=== PATIENT | female | born 1990 | race Caucasian/White ===

== ENCOUNTER 2017-10-31 19:49 | Emergency (ER) | payer OTHER, MEDICAID ==
[~2017-10-31] VITALS: Ht 157.5 cm; Wt 52.2 kg
[~2017-10-31 19:49] MED LIST: ACETAMINOPHEN-1 EAC1 PO; BACTRIM DS TAB1 EACH PO; BACTROBAN22 GM TP; HIBICLENS120 ML TP; PROTONIX 20 MG20 MG PO; SEROQUEL400 MG PO
[2017-10-31] MEDS ORDERED: NUVA RING (19:54)
[2017-10-31] MEDS ORDERED: ACETAMINOPHEN-1 EAC1 PO (20:35)
[2017-10-31] MEDS ORDERED: MEDROLDOSEPACK PO (20:35)
[2017-10-31] MEDS ORDERED: CLARITIN10 MG PO (20:35)
[2017-10-31] MEDS ORDERED: NASACORT10.8 ML NASAL (20:35)
[2017-10-31 20:44] VITALS: BP 117/78
== END 2017-10-31 20:44 | disposition home or self-care (01) ==
LOC: M.ERS 19:49
DX: J06.9 Acute upper respiratory infection, unspecified (principal); F17.210 Nicotine dependence, cigarettes, uncomplicated

== ENCOUNTER 2018-08-04 20:53 | Emergency (ER) | payer OTHER, MEDICAID ==
[~2018-08-04] VITALS: Ht 157.5 cm; Wt 51.3 kg
[~2018-08-04 20:53] MED LIST changes: +CLARITIN10 MG PO; +MEDROLDOSEPACK PO; +NASACORT10.8 ML NASAL; +NUVA RING
[2018-08-04 21:42] LABS: INFLUENZA A ANTIGEN None Detected (None Detect); INFLUENZA B ANTIGEN None Detected (None Detect)
[2018-08-04 21:45] VITALS: BP 119/74
== END 2018-08-04 21:45 | disposition home or self-care (01) ==
LOC: M.ERS 20:53
PROVIDERS: Nurse Practitioner Family
DX: J06.9 Acute upper respiratory infection, unspecified (principal); F17.210 Nicotine dependence, cigarettes, uncomplicated

== ENCOUNTER 2019-01-12 01:13 | Emergency (ER) | payer OTHER, MEDICAID ==
[~2019-01-12] VITALS: Ht 157.5 cm; Wt 52.2 kg
[2019-01-12] MEDS ORDERED: NAPROSYN500 MG PO (01:21)
[2019-01-12] MEDS ORDERED: FLUOCINOLONE AC15 G1 TOP (01:53)
[2019-01-12] MEDS ORDERED: KEFLEX500 M1 PO (01:53)
[2019-01-12 02:18] VITALS: BP 117/71
== END 2019-01-12 02:18 | disposition home or self-care (01) ==
LOC: M.ERS 01:13
DX: S90.861A Insect bite (nonvenomous), right foot, initial encounter (principal); L03.115 Cellulitis of right lower limb; J02.9 Acute pharyngitis, unspecified; F17.210 Nicotine dependence, cigarettes, uncomplicated; W57.XXXA Bitten or stung by nonvenomous insect and other nonvenomous arthropods, initial encounter; Y93.89 Activity, other specified; Y92.89 Other specified places as the place of occurrence of the external cause; Y99.8 Other external cause status

== ENCOUNTER 2019-07-20 22:15 | Emergency (ER) | payer OTHER, MEDICAID ==
[~2019-07-20] VITALS: Ht 157.5 cm; Wt 52.2 kg
[~2019-07-20 22:15] MED LIST changes: +FLUOCINOLONE AC15 G1 TOP; +KEFLEX500 M1 PO; +NAPROSYN500 MG PO
[2019-07-20] MEDS ORDERED: DOXYCYCLINE 10100 MG PO (22:52)
[2019-07-20 23:01] VITALS: BP 130/78
== END 2019-07-20 23:02 | disposition home or self-care (01) ==
LOC: M.ERS 22:15
DX: L02.413 Cutaneous abscess of right upper limb (principal); Z86.14 Personal history of Methicillin resistant Staphylococcus aureus infection